=== PATIENT | female | born 1975 | race Two or more races ===

== ENCOUNTER 2016-08-01 23:06 | Emergency (ER) | payer OTHER ==
[~2016-08-01] VITALS: Ht 152.4 cm; Wt 58.0 kg
[2016-08-01 23:12] VITALS: Ht 152.4 cm; Wt 58.0 kg
== END 2016-08-02 01:20 | disposition left against medical advice (07) ==
LOC: FTE 23:06
DX: Z53.21 Procedure and treatment not carried out due to patient leaving prior to being seen by health care provider (principal)